=== PATIENT | female | born 1980 | race Caucasian/White ===

== ENCOUNTER 2019-02-05 05:19 | Day surgery (SDC) | payer BC, OTHER ==
[~2019-02-05] VITALS: Ht 167.6 cm; Wt 74.8 kg
[~2019-02-05 05:19] MED LIST: JUNEL FE 1.5-31 EACH PO; SERTRALINE HCL100 MG PO
[2019-02-05 07:34] VITALS: BP 116/75
[2019-02-05 10:45] VITALS: BP 116/75
--- NOTE | 2019-02-12 11:51 | O ---
[facility] [address] [place] [address] OPERATIVE REPORT Name: ASAF MYERS Room #: [facility] Bin.#: [id number] Admission: 02/05/19 ������������������ Attend Phys: Oswaldo Castaneda Discharge: 02/05/19 ������������������ Date of : 78 Report #: [id number] THIS REPORT FOR: //name// CC: Oswaldo Tierney DATE OF SERVICE: 02/05/2019 PREOPERATIVE DIAGNOSES: Right knee pain, medial meniscus tear, recurrent anterior cruciate ligament tear, tricompartmental osteoarthritis. POSTOPERATIVE DIAGNOSES: Right knee pain, bucket handle tear of the medial meniscus, recurrent anterior cruciate ligament tear, grade 3 chondromalacia of patella, grade 3 chondromalacia of trochlea, grade 2 chondromalacia of medial femoral condyle and grade 2 chondromalacia of lateral tibial plateau. PROCEDURES PERFORMED: Right knee arthroscopy, partial medial meniscectomy, debridement of anterior cruciate ligament tear/stump, tricompartmental chondroplasty. SURGEON: Oswaldo Hill MD CLERICAL MANAGER: Rosa Miranda PA-C. ANESTHESIA: General per LMA. FLUIDS: 700 mL crystalloid. ESTIMATED BLOOD LOSS: Negligible. TOURNIQUET TIME: Approximately 18 minutes at 300 mmHg. DESCRIPTION OF PROCEDURE: After proper identification of the patient and operative site in preoperative holding area, the operative site was signed by myself. Prophylactic antibiotics given. The patient elected to receive general anesthetic. After induction of satisfactory general anesthesia, the right knee was examined. Trace effusion was noted. The patient had 2+ Reza and pivot shift maneuver. Range of motion was symmetric compared to the opposite side. Tourniquet was applied to the upper thigh. The limb was placed in an arthroscopic leg escalera and sterilely prepped and draped in usual manner. Esmarch was utilized. Tourniquet was inflated to 300 mmHg. A superomedial portal was created for inflow purposes. Joint was inflated with an arthroscopic pump set at 40 mmHg. An anterolateral and an anteromedial portal were created using a spinal needle for localization. Examination of suprapatellar pouch, medial and lateral gutters revealed some mild synovitis. Diffuse patellofemoral chondromalacia was noted. Extensive fibrillation, fraying and loose chondral [address] [address] OPERATIVE REPORT Name: ASAF MYERS Room #: [facility] M.R.#: [id number] Admission: 02/05/19 ������������������ Attend Phys: Oswaldo Castaneda Discharge: 02/05/19 ������������������ Date of : 78 Report #: [id number] flaps were noted on both the medial and the lateral patellar facets. This appeared to be greater than 50% of the chondral thickness, but no exposed bone was noted. Motorized shaver was used to perform chondroplasty. There was diffuse wear noted on the trochlea, especially the lateral trochlea with more high-grade chondral loss, fibrillation and loose chondral flaps. Chondroplasty was performed about the trochlea as well. Examination of the medial and lateral gutters revealed some pronounced spurring of the lateral femoral condyle. Medial compartment revealed a bucket handle tear of the medial meniscus. This was able to be reduced. The bucket handle portion was released posteriorly first and then the anterior portion. It was then removed with a grasper. There was some complex meniscal tearing behind the large displaced fragment and a combination of hand and motorized instrumentation was used to perform a partial medial meniscectomy back to a stable peripheral rim. Some chondromalacia was also appreciated on the medial femoral condyle as well as the medial tibial plateau and this appeared to occupy less than 50% of the chondral thickness, but was somewhat diffuse in areas. Motorized shaver was used to perform a chondroplasty. Anterior cruciate ligament demonstrated some fibers that displaced into the notch anteriorly. These frayed and torn fibers were carefully debrided. Some of the notch appeared to have grown over following their previous notchplasty. There were a few remaining fibers of the ACL, but still took up tension with an anterior drawer. These were left intact. They did not seem to obviously impinge in full extension as noted in the 11th image. PCL was otherwise intact. Lateral compartment of the knee revealed intact lateral meniscus that was stable to probing. Some mild chondral thinning was appreciated and fibrillation that was carefully debrided. Fourteenth image or second image on page four demonstrated the area of more high-grade chondral loss on the lateral trochlea. Knee was thoroughly irrigated with normal saline. Portals closed with simple nylon stitch. A 20 mL of 0.2% Naropin was injected around the skin incisions and into the knee joint to aid in postoperative pain control. Sterile compressive dressing was applied. She was awakened and transferred to the recovery room in stable condition. ��������������������������������������������� <ELECTRONICALLY SIGNED> ���������������������������������������� By: Oswaldo Hill MD ��������������������������������������������� 02/12/19 1151 [id number] [id number] Oswaldo Hill MD /nt
== END 2019-02-05 11:25 | disposition home or self-care (01) ==
LOC: OR 05:19 → TBA 05:19 → OR 09:40
DX: S83.211A Bucket-handle tear of medial meniscus, current injury, right knee, initial encounter (principal); S83.511A Sprain of anterior cruciate ligament of right knee, initial encounter; M94.261 Chondromalacia, right knee; F32.9 Major depressive disorder, single episode, unspecified; Z98.890 Other specified postprocedural states; Z79.899 Other long term (current) drug therapy; Y99.8 Other external cause status; X58.XXXA Exposure to other specified factors, initial encounter; Y93.89 Activity, other specified; Y92.89 Other specified places as the place of occurrence of the external cause
CPT/HCPCS: 50010; 50101; 50405; 51038; 51445; 54170; 56526; 57103; 57180; 62110; 62900; 70005